=== PATIENT | female | born 1985 | race Caucasian/White ===

== ENCOUNTER 2017-12-29 08:32 | Emergency (ER) | payer OTHER ==
--- NOTE | 2017-12-29 09:48 | EDPHY ---
H & P Stated Complaint: This past noc light bleeding has progressed, intermittent abd cramp Time Seen by Provider: 12/29/17 08:54 HPI/ROS: 32 yo F regine 8 weeks by dates per patient documented at her clinic 3 days ago presents with vaginal bleeding similar to the first day of a period. No cramping. Review of systems As per HPI-positive vaginal bleeding General no fever no chills no weakness HEENT no eye pain no eye discharge. No eye redness, no sore throat Respiratory no cough, no shortness of breath Cardiac no chest pain, no peripheral edema GI no abdominal pain, no diarrhea, no constipation, no nausea, no vomiting no flank pain, no hematuria, no dysuria Musculoskeletal no myalgias, no joint pain Heme no easy bruising, no easy bleeding Endo no polyuria, no polydipsia Skin no rashes, no pruritus Neuro no syncope, no dizziness, no headaches Psych is no suicidal ideation, no homicidal ideation Source: Patient, Family Exam Limitations: No limitations - Personal History LMP (Females 10-55): EDC: 08/06/18 - Medical/Surgical History Hx Asthma: No Hx Chronic Respiratory Disease: No Hx Diabetes: No Hx Cardiac Disease: No Hx Renal Disease: No Hx Cirrhosis: No Hx Alcoholism: No Hx HIV/AIDS: No Hx Splenectomy or Spleen Trauma: No Other PMH: Med hx-none. Surg-none - Social History Smoking Status: Never smoked - Physical Exam Exam: HEENT atraumatic normocephalic, extraocular muscles intact, anicteric Oropharynx negative for erythema negative exudate, tolerating her own secretions Neck supple no meningismus Lungs clear to auscultation bilaterally Heart regular rate and rhythm without murmur rub or gallop Abdomen nondistended normoactive bowel sounds soft nontender Back no CVA tenderness, no step-offs, no spinal tenderness Extremities no cyanosis clubbing or edema External genitalia normal, no lesions bimanaul os closed, blood in vault , no visible tissue Constitutional: Initial Vital Signs Temperature (C) 36.8 C 12/29/17 08:38 Heart Rate 74 12/29/17 08:38 Respiratory Rate 16 12/29/17 08:38 Blood Pressure 118/65 12/29/17 08:38 O2 Sat (%) 96 12/29/17 08:38 O2 Delivery Mode Room Air Allergies/Adverse Reactions: No Known Allergies Allergy (Unverified 12/29/17 08:38) Home Medications: Medication Instructions Recorded NK [No Known Home Meds] 12/29/17 Medical Decision Making - Diagnostics Imaging Results: Imaging Impressions Obstetrics Ultrasound 12/29/17 08:55 Impression: 1. Findings compatible with failure with amorphous irregular pole and lack of heart motion. Findings discussed with Edith Bowens MD at 11:07 hour, 12/29/2017. ED Course/Re-evaluation: Patient seen and evaluated for vaginal bleeding at approximately 8 weeks gestation. Labs CBC within normal limits Beta-hCG 7000 Type and Rh O+ Pelvic ultrasound 7.5 week pole , no heart beat Impression Miscarriage Currently missed vs inevitable Plan Expectant care Will follow with gynecology next Sunday on return home Differential Diagnosis: Differential diagnosis considered but not limited to: Threatened miscarriage, demise, missed , inevitable - Data Points Laboratory Results: 12/29/17 12/29/17 08:55 08:55 Beta HCG, Quant 7042.30 mIU/mL H mIU/mL (0.00-4.83) Patient ABO/Rh O POSITIVE Point of Care Test Results: CBC CBC Collection Date 12/29/17 CBC Collection Time 08:55 WBC 11.1 RBC 4.55 HGB 14.7 HCT 41.4 PLT 169 Neut # 9.3 Neut 83.6 LYMPH # 1.3 LYMPH 11.6 Other WBC # 0.5 Other WBC 4.8 MCV 91.0 Departure - Departure Disposition: Home, Routine, Self-Care Clinical Impression: Missed with demise before 20 completed weeks of gestation, Miscarriage Condition: Good Instructions: Miscarriage (ED) Additional Instructions: Return for extreme bleeding or dizziness. Follow up with your driver helper on SundayJanuary 01. You may take acetaminophen or ibuprofen as needed for pain. Referrals: NONE *PRIMARY CARE P,. [Primary Care Provider] - As per Instructions
[2017-12-29 12:04] VITALS: BP 110/70
== END 2017-12-29 11:55 | disposition home or self-care (01) ==
LOC: CED 08:32
DX: O02.1 Missed abortion (principal); Z3A.08 8 weeks gestation of pregnancy